=== PATIENT | male | born 1950 | race Caucasian/White ===

== ENCOUNTER 2017-03-15 11:04 | Emergency (ER) | payer MEDICAID, OTHER ==
[2017-03-15 11:13] VITALS: RESP 16
--- NOTE | 2017-03-15 14:31 | EDPHY ---
H & P Time Seen by Provider: 03/15/17 13:39 HPI/ROS: CHIEF COMPLAINT: Rash, myalgias HISTORY OF PRESENT ILLNESS: 66-year-old male presents to the emergency department by private vehicle complaining of rash to his left lower extremity. The patient states that [place] 1 [place] he thinks that he may have been bit by something. States that he over last few days he has felt diffuse myalgias and feeling hot and cold. He denies chest pain or difficulty breathing. Denies abdominal pain. No fevers or chills. He initially noticed the rash to his left lower leg and he also notices similar rash to his left buttock and upper hip area. He denies any other rash. REVIEW OF SYSTEMS: Constitutional: No fever, no chills. Myalgias. Eyes: No double or blurry vision. ENT: No sore throat. Respiratory: No cough, no shortness of breath. Cardiac: No chest pain. Gastrointestinal: No abdominal pain, vomiting or diarrhea. Genitourinary: No dysuria. Musculoskeletal: No neck or back pain. Skin: Rash as above Neurological: No headache. Past Medical/Surgical History: Hernia repair, cataract surgery Social History: Single and lives in [place] Physical Exam: General Appearance: Alert, no distress. Afebrile. Eyes: Pupils equal and round. Extraocular motions are all intact. ENT: Mouth: Mucous membranes moist. Respiratory: No wheezing, rhonchi, or rales, lungs are clear to auscultation. Cardiovascular: Regular rate and rhythm. Gastrointestinal: Abdomen is soft and nontender, no masses, no rebound or guarding, bowel sounds normal. Neurological: Alert and oriented x 3, cranial nerves II through XII grossly intact Skin: Skin is warm and dry. Examination of the lateral aspect of the left lower leg reveals vesicular lesions on erythematous base. No pustules. No lymphangitic streaking. This is also noted to the lateral aspect of the left ankle. Also noted to the left lateral buttock and upper hip area. No evidence of cellulitis or infection. No pustules. This appears consistent with herpes zoster. Musculoskeletal: Nontender to palpate along the cervical, thoracic or lumbar spine. Neck is supple. Extremities: Full range of motion and no peripheral edema. Psychiatric: Patient is oriented X 3, there is no agitation. Constitutional: Initial Vital Signs Temperature (C) 36.5 C 03/15/17 11:10 Heart Rate 83 03/15/17 11:10 Respiratory Rate 16 03/15/17 11:10 Blood Pressure 144/105 H 03/15/17 11:10 O2 Sat (%) 100 03/15/17 11:10 O2 Delivery Mode Room Air Allergies/Adverse Reactions: No Known Allergies Allergy (Unverified 03/04/12 12:20) Home Medications: Medication Instructions Recorded Valacyclovir HCl [Valtrex] 1,000 mg PO TID #21 tab 03/15/17 Medical Decision Making ED Course/Re-evaluation: 56-year-old male presents to the emergency department with vesicular rash to the left lower extremity. He reports no itching and very little pain associated with this. Clinically I think this is consistent with herpes zoster. He was started on Valtrex. I do not think wound cultures are indicated. I do not think laboratory studies are necessary. The patient is comfortable being discharged home. He was given primary care referral since he does not have a primary care physician. Differential Diagnosis: Including but not limited to herpes zoster, cellulitis, contact dermatitis, poison prabhakar exposure, sepsis Departure - Departure Disposition: Home, Routine, Self-Care Clinical Impression: Herpes zoster right lower extremity Condition: Good Instructions: Shingles (ED) Additional Instructions: Valtrex 1000 mg three times daily for 7 days. You should follow up with primary care provider to recheck this week. Return to the emergency department if he developed fever, worsening rash, or if you feel worse in any way. Referrals: Krissy Morales MD [Medical Doctor] - 2-3 days, call for appt. (Primary care provider government contracts manager) Prescriptions: Valacyclovir HCl [Valtrex] 1,000 mg PO TID #21 tab
[2017-03-15 14:59] VITALS: BP 136/84; PULSE 84; TEMP 98.2; O2SAT 96
== END 2017-03-15 15:11 | disposition home or self-care (01) ==
DX: B02.9 Zoster without complications (principal)